=== PATIENT | female | born 1950 | race Caucasian/White ===

== ENCOUNTER 2024-02-03 15:46 | Emergency (ER) | payer MEDICARE, OTHER, SELFPAY ==
[2024-02-03 15:53] VITALS: BP 167/71
[2024-02-03 16:13] LABS: % Basophils 0.6 % (0-2); % Eosinophils 1.1 % (0-6); % Immature Granulocytes 0.4 % (0-0.5); % Lymphocytes 18.6 % (20.5-51.1); % Monocytes 6.4 % (1.7-9.3); % Neutrophils 72.9 % (42.2-75.2); Absolute Basophils 0.1 10^3/uL (0-0.2); Absolute Eosinophils 0.1 10^3/uL (0-0.7); Absolute Lymphocytes 1.5 10^3/uL (1.2-3.4); Absolute Monocytes 0.5 10^3/uL (0.1-0.6); Absolute Neutrophils 5.7 10^3/uL (1.4-6.5); Hematocrit 39.8 % (37.0-47.0); Hemoglobin 13.8 g/dL (12.0-16.0); Mean Corp Hgb Conc. 34.7 g/dL (33.0-37.0); Mean Corpuscular Hgb 30.8 pg (27.0-31.0); Mean Corpuscular Volume 88.8 fL (81.0-99.0); Mean Platelet Volume 9.3 fL (7.4-10.4); Nucleated Red Blood Cells % 0 %; Platelet Count 241 10^3/uL (130-400); Red Blood Cell Count 4.48 10^6/uL (4.20-5.40); Red Cell Dist. Width 13.2 % (11.5-14.5); White Blood Cell Count 7.8 10^3/uL (4.8-10.8)
[2024-02-03 16:28] LABS: ALT (SGPT) 18 U/L (0-35); AST (SGOT) 24 U/L (14-36); Albumin 4.3 g/dl (3.5-5.0); Alkaline Phosphatase 77 U/L (38-126); Blood Urea Nitrogen 16 mg/dl (7-17); Calcium 9.6 mg/dl (8.4-10.2); Carbon Dioxide 30 mmol/L (22-30); Chloride 91 mmol/L (98-107); Glucose 100 mg/dl (70-99); Potassium 3.8 mmol/L (3.5-5.1); Sodium 129 mmol/L (135-145); Total Bilirubin 0.5 mg/dl (0.2-1.3); Total Protein 6.9 g/dl (6.3-8.2); eGFR > 60.00
--- NOTE | 2024-02-03 18:15 | ED.GENMED ---
History of Present Illness
General
Chief Complaint: Headache
Source: patient
Exam Limitations: none
Time Seen by Provider: 02/03/24 17:58
Travel History
Have you had any contact with someone who has COVID-19?: No
Do you have any symptoms of coronavirus? Fever > 100 degrees, chills, cough, shortness of breath, sore throat, loss of taste or smell, muscle aches, or headache?: No
History of Present Illness
History of Present Illness:
This is a 73 year old female that comes in with c/o high BP, lightheadedness and a headache. States that today her BP was up to 172/88. States that she had a headache and felt lightheaded. States that she had a little of this on Saturday but she
thought it was due to Coffee. States that she had felt shaky and had a headache. This went away on its own. States that she also felt shaky today with the headache. States that she was a little nauseated. Denies any fever, chills, chest pain, SOB,
abd pain, vomiting, diarrhea, dizziness, urinary burning.
Past History
Past History
ED Past Medical History: Arrthythmia (Atrial fib,), Cancer (Skin Cancer), GERD and HTN
ED Past Surgical History: Other (Deviated septum )
Social History
Tobacco: Non-smoker
Alcohol: None
Drug: None
Personal:
Living: with family
Review of Systems
Review of Systems
All Other Systems: ROS reviewed and negative except as documented in HPI and ROS
Constitutional: Reports no symptoms; Denies fever or chills
EENT: Reports no symptoms
Respiratory: Reports no symptoms; Denies cough or trouble breathing
Cardiac: Reports no symptoms; Denies chest pain
ABD/GI: Reports nausea; Denies abdominal pain, vomiting or diarrhea
: Reports no symptoms; Denies dysuria, frequency or urgency
Musculoskeletal: Reports no symptoms
Skin: Reports no symptoms
Neurological: Reports headache and other (Lightheadedness); Denies dizzy
Psychiatric: Reports no symptoms
Phy Exam
General Physical Exam
General Presentation: no apparent distress
General age: appears stated age
General Skin: warm and dry
General Habitus: elderly
General Mental: alert
General Hydration: dry mucous membranes
ENT Exam
ENT Exam: TM's normal and pharynx normal
Eye Exam
Eye Exam: EOMI
Cardiovascular Exam
Cardiovascular Exam: regular rate/rhythm, no edema, no murmur and normal peripheral pulses
Pulmonary Exam
Pulmonary Exam: lungs clear, no respiratory distress, no rales, chest non tender, no crackles, no rhonchi, no wheezing and no cough
Gastrointestinal Exam
Gastrointestinal Exam: normal bowel sounds, non tender, soft, no organomegaly, no pulsatile mass and non distended
Musculoskeletal Exam
Musculoskeletal Exam: full ROM and no edema
Skin Exam
Skin Exam: normal color, warm/dry, no rash and no petechia
Psychiatric Exam
Psychiatric Exam: normal mood/affect
Course
Orders/Labs/Results
Orders:
Orders
02/03/24 15:55
Electrocardiogram (*1) Urgent
Reason for Study: Atrial Fibrillation
EKG- Treatment ONCE
02/03/24 15:58
Complete Blood Count/With Diff Urgent
Comprehensive Metabolic Panel Urgent
02/03/24 18:15
0.9% Sodium Chloride 1000 ml [Nss] 1,000 ml IV BOLUS
Acetaminophen [Tylenol] 1,000 mg PO NOW STA
02/03/24 18:22
Electrocardiogram (*1) Urgent
Reason for Study: Vertigo / Dizzy
02/03/24 18:26
Urinalysis Reflex To Culture Urgent
Date Specimen was Collected: 02/03/24
Time Specimen was Collected: 18:25
Abnormal Lab Results
02/03/24 02/03/24
15:58 18:26
Lymphocytes % 18.6 L %
(20.5-51.1)
Sodium 129 L mmol/L
(135-145)
Chloride 91 L mmol/L
(98-107)
Glucose 100 H mg/dl
(70-99)
Urine Ketones Trace A
(Negative)
02/03/24 15:58
02/03/24 15:58
Sodium slightly low. Chloride low. glucose nonfasting.
Urine negative for infection.
Vital Signs
Initial and Last Documented VS:
Initial Vital Signs
Temp Pulse Resp BP Pulse Ox
97.7 F 59 18 167/71 100
02/03/24 15:53 02/03/24 15:53 02/03/24 15:53 02/03/24 15:53 02/03/24 15:53
Last Documented Vital Signs
Temp Pulse Resp BP Pulse Ox
97.7 F 61 18 148/63 98
02/03/24 15:53 02/03/24 18:36 02/03/24 18:36 02/03/24 18:36 02/03/24 18:36
MDM/Problems Addressed
Differential Diagnosis Includes:
Dehydration. Hypertension. UTI
MDM/Problems Addressed:
This is a 73 year old female that comes in with c/o headache, lightheadedness and elevated BP. States that she had this on Saturday but thought it was due to her drinking coffee. Then today her BP was up to 172/88. States that she had a headache and
felt cold.
Will get labs, urine and give IV fluids.
Back into see patient. Explained that her BP may have been elevated due to her headache. Will have patient follow up with the family doctor in 2 days for lab check to make sure her Sodium is not going any lower. Patient to return with any concerns.
Chronic conditions affecting care: HTN
Acute Exacerbation and/or Progression of Chronic Illness: HTN
*Pulse Oximetry
Patient hypoxic: no
*EKG
Interpreted by ED Provider?: Yes
Heart Rate: 58
Rate: bradycardiac
Rhythm: sinus
[place]: normal axis
Interval: normal interval
QRS Pattern: normal QRS
Ischemia: no ischemia
*Rn Pain Management Interpretation
Rate: Rn Pain Management- N/A
*Critical Care Note
Total Time (30-74mins, 75-104mins- exclusive of procedures): Not Applicable
ED Attending Note
-
Portions of this chart may have been created with voice recognition software.� Occasional wrong word or��sound alike� substitutions may have occurred due to the inherent limitations of voice recognition software.
Discharge Plan
Departure
Patient Disposition: Home (Routine Discharge)
Date of Disposition: 02/03/24
Time of Disposition: 19:38
Patient with high blood pressure during this ER visit?: Yes
Condition: Good
Covid-19: Not Applicable
Discharge Problem:
Headache
Instructions: Headache, Adult (DC), BLOOD PRESSURE
Prescriptions:
No Action
metoprolol succinate 25 MG tablet extended release 24 hr
50 mg PO DAILY
acetaminophen [Tylenol] 325 MG capsule
650 mg PO Q4HPRN PRN (Reason: pain)
Eliquis 5 mg tablet
5 mg PO BID Qty: 60 0RF
Referrals:
Bonnie Zhang, [Family Provider] - Follow up in 2-3 days
Activity Restrictions/Additional Instructions:
As discussed, your blood work shows that your Sodium is slightly low. Please follow up with the family doctor in 2 days as they can repeat your blood work to check on your sodium. Please limit your water intake to only 6-8oz glasses daily. You may
use Tylenol 1000mg every 6 hours for any headache. pain. IF YOU HAVE ANY OTHER CONCERNS PLEASE RETURN TO THE EMERGENCY ROOM.
Interventions
Interventions:
*Risk Screen - Suicide Last Done: 02/03/24 15:53
*General Assessment Last Done: 02/03/24 15:53
*Neglect/Abuse Screening Last Done: 02/03/24 15:53
ED- Fall Risk Assessment Last Done: 02/03/24 18:37
*ED COVID-19 Vaccine History Last Done: 02/03/24 15:53
ED- Neurological Assessment Last Done: 02/03/24 18:37
[2024-02-03] MEDS: NSS 1000 IV (18:33)
[2024-02-03 18:34] LABS: Urine Albumin Negative (Neg - Trace); Urine Bilirubin Negative (Negative); Urine Character Clear (Clear); Urine Color Yellow; Urine Glucose Negative (Negative); Urine Ketone Trace (Negative); Urine Leukocyte Negative (Negative); Urine Nitrite Negative (Negative); Urine Occult Blood Negative (Negative); Urine Urobilinogen Negative (Neg - 1+)
[2024-02-03] MEDS: TYLENOL 1000 MG PO (18:34)
[2024-02-03 18:36] VITALS: BP 148/63
[2024-02-03 19:50] VITALS: BP 136/99
== END 2024-02-03 19:53 | disposition home or self-care (01) ==
LOC: EMR 15:46
PROVIDERS: Clinical Nurse Specialist Family Health; Emergency Medicine; EMERGENCY PHYSICIAN Emergency Medicine; FAMILY PHYSICIAN Family Medicine
DX: R51.9 Headache, unspecified (principal); R42 Dizziness and giddiness; R11.0 Nausea; I10 Essential (primary) hypertension; I48.91 Unspecified atrial fibrillation; K21.9 Gastro-esophageal reflux disease without esophagitis; Z85.828 Personal history of other malignant neoplasm of skin; Z91.040 Latex allergy status; Z88.8 Allergy status to other drugs, medicaments and biological substances; Z91.048 Other nonmedicinal substance allergy status
CPT/HCPCS: 99284; 80053; 81003; 85025; 93005

== ENCOUNTER 2024-10-08 11:26 | Emergency (ER) | payer MEDICARE, OTHER, SELFPAY ==
[2024-10-08 11:30] VITALS: BP 158/69
[2024-10-08 11:51] LABS: % Basophils 0.5 % (0-2); % Eosinophils 1.8 % (0-6); % Immature Granulocytes 0.1 % (0-0.5); % Lymphocytes 17.4 % (20.5-51.1); % Monocytes 6.6 % (1.7-9.3); % Neutrophils 73.6 % (42.2-75.2); Absolute Eosinophils 0.1 10^3/uL (0-0.7); Absolute Lymphocytes 1.3 10^3/uL (1.2-3.4); Absolute Monocytes 0.5 10^3/uL (0.1-0.6); Absolute Neutrophils 5.5 10^3/uL (1.4-6.5); Hematocrit 42.3 % (37.0-47.0); Hemoglobin 14.4 g/dL (12.0-16.0); Mean Corpuscular Volume 91.2 fL (81.0-99.0); Mean Platelet Volume 9.4 fL (7.4-10.4); Nucleated Red Blood Cells % 0 %; Platelet Count 236 10^3/uL (130-400); Red Blood Cell Count 4.64 10^6/uL (4.20-5.40); Red Cell Dist. Width 13.2 % (11.5-14.5); White Blood Cell Count 7.4 10^3/uL (4.8-10.8)
[2024-10-08 12:05] LABS: ALT (SGPT) 25 U/L (0-35); AST (SGOT) 26 U/L (14-36); Albumin 4.5 g/dl (3.5-5.0); Alkaline Phosphatase 83 U/L (38-126); Blood Urea Nitrogen 23 mg/dl (7-17); Calcium 9.8 mg/dl (8.4-10.2); Carbon Dioxide 28 mmol/L (22-30); Chloride 99 mmol/L (98-107); Glucose 96 mg/dl (70-99); Potassium 3.8 mmol/L (3.5-5.1); Sodium 139 mmol/L (135-145); Total Bilirubin 0.4 mg/dl (0.2-1.3); Total Protein 7.1 g/dl (6.3-8.2); eGFR > 60.00
[2024-10-08 12:15] LABS: Troponin I < 0.012 ng/ml
--- NOTE | 2024-10-08 12:48 | ED.GENMED ---
History of Present Illness
General
Chief Complaint: Chest Pain
Source: patient
Exam Limitations: none
Time Seen by Provider: 10/08/24 12:28
Nursing documentation reviewed up to this point in time: agreed with
History of Present Illness
History of Present Illness:
74 yr old female w/ pmh of past medical history of A-fib, ( on Eliquis) hypertension presents to the ER for evaluation of chest pain. Patient was making lunch around 10:45 AM when she slowly developed left-sided chest pain which resolved upon
arrival to the treatment room. She reported she had no radiation of pain. No associated nausea vomiting diaphoresis/shortness of breath.
She denies any injury. No history of CAD.
She is followed by Dr Lantigua
Past History
Past History
ED Past Medical History: Arrthythmia (Atrial fib,), Cancer (Skin Cancer), GERD and HTN
ED Past Surgical History: Other (Deviated septum )
Social History
Tobacco: Non-smoker
Alcohol: None
Drug: None
Personal:
Living: with family
Review of Systems
Review of Systems
Allergies reviewed?: Yes
Other source history: family
All Other Systems: ROS reviewed and negative except as documented in HPI and ROS
Constitutional: Reports no symptoms; Denies fever, fatigue or chills
Respiratory: Reports no symptoms
Cardiac: Reports chest pain; Denies diaphoresis, palpitations or syncope
ABD/GI: Reports no symptoms
: Reports no symptoms
Musculoskeletal: Reports no symptoms
Skin: Reports no symptoms
Neurological: Reports no symptoms
Psychiatric: Reports no symptoms
Phy Exam
General Physical Exam
General Presentation: no apparent distress
General age: appears stated age
General Skin: warm and dry
General Habitus: elderly
General Mental: alert
General Hydration: appears well hydrated
Cardiovascular Exam
Cardiovascular Exam: regular rate/rhythm, no murmur and normal peripheral pulses
Pulmonary Exam
Pulmonary Exam: lungs clear, no respiratory distress, chest non tender and no stridor
Neurological Exam
Neurological Exam: alert and oriented x3
Musculoskeletal Exam
Musculoskeletal Exam: full ROM
Skin Exam
Skin Exam: normal color and warm/dry
Psychiatric Exam
Psychiatric Exam: normal mood/affect
Scores
Heart Score for Chest Pain Patients
STEMI patient?: Not applicable
Course
Orders/Labs/Results
Orders:
Orders
10/08/24
Electrocardiogram (*1) Stat
Comment: A-DN
10/08/24 11:27
Electrocardiogram (*1) Urgent
Reason for Study: Chest Pain
EKG- Treatment ONCE
10/08/24 11:42
Complete Blood Count/With Diff Urgent
Comprehensive Metabolic Panel Urgent
Troponin I Urgent
10/08/24 13:13
Chest [CR Chest - 2 Views ] Urgent
Comment:
Reason For Exam: chest pain
10/08/24 14:42
Troponin I Urgent
Abnormal Lab Results
10/08/24
11:42
Lymphocytes % 17.4 L %
(20.5-51.1)
BUN 23 H mg/dl
(7-17)
10/08/24 11:42
10/08/24 11:42
Vital Signs
Initial and Last Documented VS:
Initial Vital Signs
Temp Pulse Resp BP Pulse Ox
98.2 F 60 18 158/69 97
10/08/24 11:30 10/08/24 11:30 10/08/24 11:30 10/08/24 11:30 10/08/24 11:30
Last Documented Vital Signs
Temp Pulse Resp BP Pulse Ox
98.2 F 52 14 128/49 98
10/08/24 11:30 11/14/24 15:15 10/08/24 15:15 10/08/24 15:00 10/08/24 15:15
Seat Cover Installer consulted with Physician
Seat Cover Installer consulted with physician?: Yes
Name of Physician Consulted: Noh
MDM/Problems Addressed
Differential Diagnosis Includes:
Not limited to unstable angina, muscular pain
MDM/Problems Addressed:
Patient is a 74 yr -year-old female with history of A-fib on Eliquis hypertension however no CAD presents to the ER for left-sided chest pain that started this morning while making lunch. Patient's pain resolved prior to my exam patient has
remained chest pain-free here. She had no associated shortness of breath. She has not skipped her Eliquis dose for A-fib. Nontachycardic symptoms not consistent with PE no acute findings on EKGs first troponin negative will plan to discharge home
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
Chronic conditions affecting care:
afib on eliquis
Chronic conditions affecting care: HTN
*Radiology
Radiology exam reviewed: radiology read reviewed
*Pulse Oximetry
Patient hypoxic: no
*EKG
Interpreted by ED Provider?: Yes
Interpretation: normal
Comparison EKG: no comparison EKG present
Heart Rate: 60
Rate: normal
Rhythm: sinus
Ischemia: other (Repeat EKG unchanged)
*Critical Care Note
Total Time (30-74mins, 75-104mins- exclusive of procedures): Not Applicable
Data Reviewed
Review of Other/Old Records Reveals: Other (Echo from June 2023shows normal biventricular size and systolic function without regional wall motion EF 55-60 with mild to moderate mitral regurg and moderate tricuspid regurg)
ED Attending Note
-
Portions of this chart may have been created with voice recognition software.� Occasional wrong word or��sound alike� substitutions may have occurred due to the inherent limitations of voice recognition software.
Discharge Plan
Departure
Patient Disposition: Home (Routine Discharge)
Date of Disposition: 10/08/24
Time of Disposition: 15:42
Patient with high blood pressure during this ER visit?: Yes
Condition: Fair
Covid-19: Not Applicable
Discharge Problem:
Chest pain
Instructions: Chest Pain CBC Follow Up
Prescriptions:
No Action
metoprolol succinate 25 MG tablet extended release 24 hr
50 mg PO DAILY
acetaminophen [Tylenol] 325 MG capsule
650 mg PO Q4HPRN PRN (Reason: pain)
Eliquis 5 mg tablet
5 mg PO BID Qty: 60 0RF
Referrals:
Art Gutiérrez MD [Active] -
Bonnie Zhang DO [Family Provider] -
Activity Restrictions/Additional Instructions:
As discussed follow-up with cardiology for reevaluation of chest pain. You were placed on the cardiac hotline which means you should receive a call from the office in the next several days or if you do not please call the office as soon as possible
make an appointment for reevaluation of symptoms .
return if any worsening of symptoms
Interventions
Interventions:
*Risk Screen - Suicide Last Done: 10/08/24 11:30
*General Assessment Last Done: 10/08/24 11:30
*Neglect/Abuse Screening Last Done: 10/08/24 11:30
ED- Fall Risk Assessment Last Done: 10/08/24 13:09
*ED COVID-19 Vaccine History Last Done: 10/08/24 11:30
ED- Cardiac Assessment Last Done: 10/08/24 13:09
Discharge Date and Time
Print Language: THAI
--- NOTE | 2024-10-08 12:49 | EDRN ---
Jyoti Fitzgerald CUPOLA TAPPER in room w/ pt at this time.
[2024-10-08 13:02] VITALS: BP 137/55
[2024-10-08 13:05] VITALS: BMI 34.4
--- NOTE | 2024-10-08 13:27 | EDRN ---
Pt prior to arrival states she had intermittant L upper chest 'discomfort. Pt did not call it pain and kept coming and going. Pt at this time is pain free. Pt states she also had sl nausea w/ it.
[2024-10-08 14:18] VITALS: BP 134/47
[2024-10-08 15:00] VITALS: BP 128/49
--- NOTE | 2024-10-08 15:00 | EDRN ---
Repeat troponin drawn and sent by Alexandra PATEL.
[2024-10-08 15:20] LABS: Troponin I < 0.012 ng/ml
--- NOTE | 2024-10-08 15:22 | EDRN ---
Jyoti Fitzgerald NEWS LIBRARIAN in to speak w/ pt.
[2024-10-08 16:00] VITALS: BP 133/52
== END 2024-10-08 16:11 | disposition home or self-care (01) ==
LOC: EMR 11:26
PROVIDERS: Emergency Medicine; Nurse Practitioner; EMERGENCY PHYSICIAN Emergency Medicine; FAMILY PHYSICIAN Family Medicine
DX: R07.89 Other chest pain (principal); I10 Essential (primary) hypertension; I48.91 Unspecified atrial fibrillation; K21.9 Gastro-esophageal reflux disease without esophagitis; Z79.01 Long term (current) use of anticoagulants; Z85.828 Personal history of other malignant neoplasm of skin
CPT/HCPCS: 99285; 71046; 80053; 84484; 85025; 93005